=== PATIENT | female | born 2000 | race Caucasian/White ===

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

== ENCOUNTER → 2022-09-15 | Outpatient (CLI) | payer OTHER, BC | LOC: M PAIN 13:00 | PROVIDERS: ATTEND Nurse Practitioner Family | DX: M54.50 Low back pain, unspecified (principal); G89.29 Other chronic pain; J45.909 Unspecified asthma, uncomplicated; I10 Essential (primary) hypertension; E28.2 Polycystic ovarian syndrome; Z86.59 Personal history of other mental and behavioral disorders; Z88.1 Allergy status to other antibiotic agents; Z88.8 Allergy status to other drugs, medicaments and biological substances; E66.01 Morbid (severe) obesity due to excess calories; Z68.43 Body mass index [BMI] 50.0-59.9, adult; Z79.899 Other long term (current) drug therapy ==

== ENCOUNTER → 2023-04-15 | Outpatient (REF) | payer OTHER ==
[2023-04-15 16:41] LABS: BASO # 0.1 10^3/uL (0.0-0.2); BASO % 0.5 % (0.0-1.0); EOS # 0.1 10^3/uL (0.0-0.5); EOS % 0.6 % (0.0-3.0); HEMATOCRIT 44.6 % (36.0-47.0); HEMOGLOBIN 14.9 g/dl (12.0-15.5); LYMPH # 2.6 10^3/uL (1.5-5.0); LYMPH % 24.5 % (24.0-44.0); MEAN CORPUSCULAR HEMOGLOBIN 32.3 pg (27.0-33.0); MEAN CORPUSCULAR HGB CONC 33.4 g/dl (32.0-36.5); MEAN CORPUSCULAR VOLUME 96.7 fl (80.0-96.0); MONO # 0.9 10^3/uL (0.0-0.8); MONO % 8.6 % (2.0-8.0); NEUTROPHILS % 65.4 % (36.0-66.0); PLATELET COUNT, AUTOMATED 325 10^3/uL (150-450); RED BLOOD COUNT 4.61 10^6/uL (4.00-5.40); WHITE BLOOD COUNT 10.6 10^3/uL (4.0-10.0)
[2023-04-15 16:42] LABS: APPEARANCE, URINE CLEAR (CLEAR); BACTERIA, URINE AUTO NEGATIVE (NEGATIVE); BILIRUBIN, URINE AUTO NEGATIVE (NEGATIVE); BLOOD, URINE BLOOD NEGATIVE (NEGATIVE); CALCIUM OXALATE CRYSTALS MODERATE; COLOR, URINE YELLOW (YELLOW); GLUCOSE, URINE (UA) AUTO NEGATIVE (NEGATIVE); KETONE, URINE AUTO NEGATIVE (NEGATIVE); LEUKOCYTE ESTERASE, URINE AUTO NEGATIVE (NEGATIVE); MUCUS, URINE SMALL (NEGATIVE); NITRITE, URINE AUTO NEGATIVE (NEGATIVE); PROTEIN, URINE AUTO 2+ mg/dL (NEGATIVE); RBC, URINE AUTO 1 /HPF (0-3); SPECIFIC GRAVITY URINE AUTO 1.026 (1.002-1.035); SQUAMOUS EPITHELIAL CELL UR AU 3 /HPF (0-6); UROBILINOGEN, URINE AUTO 0.2 mg/dL (0.0-2.0); WBC, URINE AUTO 2 /HPF (0-3)
[2023-04-15 17:00] LABS: TOTAL PROTEIN,RANDOM URINE 84.7 MG/DL (0.0-14.0)
[2023-04-15 17:06] LABS: ALBUMIN 3.6 G/DL (3.2-5.2); ALKALINE PHOSPHATASE 67 U/L (46-116); ALT/SGPT 34 U/L (7.0-40); AST/SGOT 26 U/L (<34); BILIRUBIN,TOTAL 0.2 MG/DL (0.3-1.2); BLOOD UREA NITROGEN 12 MG/DL (9-23); CALCIUM LEVEL 9.5 MG/DL (8.5-10.1); CARBON DIOXIDE LEVEL 22 MMOL/L (20-31); CHLORIDE LEVEL 105 MMOL/L (98-107); GLUCOSE, FASTING 99 MG/DL (60-100); POTASSIUM SERUM 4.7 MMOL/L (3.5-5.1); SODIUM LEVEL 139 MMOL/L (136-145); TOTAL PROTEIN 7.2 G/DL (5.7-8.2)
[2023-04-15 17:08] LABS: COMPLEMENT C3 167.5 MG/DL (82.0-160.0); COMPLEMENT C4 54.3 MG/DL (12-36)
[2023-04-15 18:30] LABS: ERYTHROCYTE SEDIMENTATION RATE 56 mm/hr (0-20)
== END ==
LOC: M SFHCRHEU 13:44
PROVIDERS: ATTEND Internal Medicine Rheumatology
DX: R76.8 Other specified abnormal immunological findings in serum (principal); M79.89 Other specified soft tissue disorders; M54.50 Low back pain, unspecified

== ENCOUNTER 2025-01-31 06:04 | Observation (INO) | payer OTHER ==
[2025-01-31] VITALS (8 sets, daily range): BP systolic 114–140; BP diastolic 59–90; TEMP 97.7–98.6; O2SAT 90–93
[~2025-01-31] VITALS: Ht 160 cm; Wt 181.1 kg
[~2025-01-31 06:04] MED LIST: FLUO1TAB PO; MONT10TA97 PO; OMEP40CA4 PO; SPIR50TA4 PO; THERTAB52 PO; VITA100093 PO
[2025-01-31] MEDS: LR 1,000 ML IV SCH (06:40)
[2025-01-31] MEDS ORDERED: dexAMETHasone 4 MG/ML 1 ML VIAL As Ordered ONE (07:05)
[2025-01-31] MEDS ORDERED: LIDOCAINE 2% 100 MG/5 ML SDV (FOR ANES.) As Ordered ONE (07:05)
[2025-01-31] MEDS ORDERED: KETOROLAC 30 MG/ML 1 ML VIAL As Ordered ONE (07:05)
[2025-01-31] MEDS ORDERED: ROCURONIUM BROMIDE 50MG/5ML VIAL As Ordered ONE (07:05)
[2025-01-31] MEDS ORDERED: ONDANSETRON 4MG 2ML VIAL As Ordered ONE (07:05)
[2025-01-31] MEDS ORDERED: SUGAMMADEX SODIUM 500 MG/5 ML VIAL As Ordered ONE (07:05)
[2025-01-31] MEDS ORDERED: HYDROmorphone HCL 2 MG/ML 1 ML VIAL As Ordered ONE (07:06)
[2025-01-31] MEDS ORDERED: MIDAZOLAM INJ 2 MG/2 ML VIAL As Ordered ONE (07:06)
[2025-01-31] MEDS: CelecoXIB 400 MG CAP PO ONE (07:10)
[2025-01-31] MEDS: SCOPOLAMINE 1MG TRANSDERMAL PATCH TOP ONE (07:50)
[2025-01-31] MEDS: INDOCYANINE GREEN 25 MG VIAL IV ONE (07:55)
[2025-01-31] MEDS ORDERED: HOME MED LIST COMPLETE! XX SCH ×2 (08:00→12:25)
[2025-01-31] MEDS ORDERED: ESMOLOL 100 MG/10 ML VIAL As Ordered ONE (08:31)
[2025-01-31] MEDS ORDERED: GLYCOPYRROLATE INJ 0.2 MG/ML 2 ML VIAL As Ordered ONE (08:45)
[2025-01-31] MEDS: ceFAZolin SOD 3 GM in DEXTROSE 5% (D5W) MINI-BAG PLU 1... IV ONE (08:55)
[2025-01-31] MEDS: LIDOCAINE 1% SDV 30 ML VIAL As Ordered ONE (09:44)
[2025-01-31] MEDS: MEPERIDINE 25 MG/ML 1 ML VIAL IV PRN (10:28)
[2025-01-31] MEDS: IPRATROPIUM 0.5 MG/ALBUTEROL 2.5 MG INH SOL UD 3 ML NEB ONE (11:30)
[2025-01-31] MEDS: ONDANSETRON 4MG 2ML VIAL IV PRN (11:59)
[2025-01-31] MEDS ORDERED: KETOROLAC 30 MG/ML 1 ML VIAL IV SCH (12:00)
[2025-01-31] MEDS ORDERED: ONDANSETRON 4MG 2ML VIAL IV PRN (12:00)
[2025-01-31] MEDS ORDERED: ACETAMINOPHEN 325 MG TAB PO PRN (12:00)
[2025-01-31] MEDS: OMEPRAZOLE 20MG CAP PO SCH (13:32)
[2025-01-31] MEDS: ALBUTEROL SULFATE 2.5 MG/0.5 ML INH CONCENTRATE NEB SOLN NEB SCH (14:00)
[2025-01-31] MEDS: KETOROLAC 30 MG/ML 1 ML VIAL IV SCH (17:20)
[2025-01-31] MEDS: SPIRONOLACTONE 50 MG TAB PO SCH (17:20)
[2025-01-31] MEDS: DOCUSATE SODIUM 100 MG CAPSULE PO SCH (21:21)
[2025-02-01 00:01] VITALS: BP 121/67; TEMP 97.9; O2SAT 91
[2025-02-01 03:22] VITALS: BP 123/60; TEMP 98.4; O2SAT 90
[2025-02-01 06:38] LABS: BASO # 0.0 10^3/uL (0.0-0.2); BASO % 0.1 % (0.0-1.0); EOS # 0.0 10^3/uL (0.0-0.5); EOS % 0.0 % (0.0-3.0); LYMPH # 2.2 10^3/uL (1.5-5.0); LYMPH % 15.3 % (24.0-44.0); MONO # 0.9 10^3/uL (0.0-0.8); MONO % 6.2 % (2.0-8.0); NEUTROPHILS # 10.9 10^3/uL (1.5-8.5); NEUTROPHILS % 77.8 % (36.0-66.0); PLATELET COUNT, AUTOMATED 306 10^3/uL (150-450)
[2025-02-01 07:08] LABS: ALT/SGPT 22 U/L (7.0-40); AST/SGOT 21 U/L (<34); CALCIUM LEVEL 9.2 MG/DL (8.5-10.1); CARBON DIOXIDE LEVEL 23 MMOL/L (20-31); CHLORIDE LEVEL 104 MMOL/L (98-107); CREATININE FOR GFR 0.73 MG/DL (0.55-1.30); GLOMERULAR FILTRATION RATE > 90.0 (>60); POTASSIUM SERUM 4.9 MMOL/L (3.5-5.1); SODIUM LEVEL 141 MMOL/L (136-145)
[2025-02-01] MEDS: ENOXAPARIN 60 MG/0.6 ML SYRINGE (J1650 PER 10MG) SC SCH (09:00)
[2025-02-01] MEDS ORDERED: ENOXAPARIN 40 MG/0.4 ML SYRINGE (J1650 PER 10MG) SC SCH (09:00)
[2025-02-01 10:11] VITALS: BP 133/76
== END 2025-02-01 10:41 | disposition home or self-care (01) ==
LOC: M SDC 06:04 → M RR INP 06:05 → M MSPAV 12:35
PROVIDERS: ADMIT Surgery; ATTEND Surgery
DX: K80.20 Calculus of gallbladder without cholecystitis without obstruction (principal); E66.01 Morbid (severe) obesity due to excess calories; E11.9 Type 2 diabetes mellitus without complications; F41.9 Anxiety disorder, unspecified; F32.A Depression, unspecified; E28.2 Polycystic ovarian syndrome; J45.909 Unspecified asthma, uncomplicated; Z79.899 Other long term (current) drug therapy; Z88.0 Allergy status to penicillin; Z88.8 Allergy status to other drugs, medicaments and biological substances
CPT/HCPCS: 36415; 47563; 80053; 81025; 85025; 88304; 94640; 96374; 96376; J0665; J0688; J1100; J1171; J1596; J1805; J1885; J2175; J2250; J2405; J2765; J3010; Q9968; S2900